=== PATIENT | female | born 1995 | race Hispanic/Latino ===

== ENCOUNTER 2019-03-27 01:03 | Inpatient (IN) | payer OTHER ==
[2019-03-27] VITALS (18 sets, daily range): BP systolic 103–132; BP diastolic 55–92
[~2019-03-27] VITALS: Ht 162.6 cm; Wt 78.2 kg
[2019-03-27] MEDS ORDERED: LR 1,000 ML IV SCH (01:39)
[2019-03-27] MEDS ORDERED: LACTATED RINGER'S 1000 ML IV ONE (01:45)
[2019-03-27 02:18] LABS: HEMATOCRIT 38.3 % (36.0-47.0); HEMOGLOBIN 13.4 g/dl (12.0-15.5); MEAN CORPUSCULAR HEMOGLOBIN 31.7 pg (27.0-33.0); MEAN CORPUSCULAR VOLUME 90.5 fl (80.0-96.0); PLATELET COUNT, AUTOMATED 154 10^3/uL (150-450); RED BLOOD COUNT 4.23 10^6/uL (4.00-5.40); WHITE BLOOD COUNT 11.8 10^3/uL (4.0-10.0)
[2019-03-27] MEDS ORDERED: FENTANYL 2MCG/ML ROPIVACAINE 0.2% IN 0.9% NACL 100ML IVBAG As Ordered ONE (02:30)
[2019-03-27] MEDS ORDERED: ePHEDrine SULFATE 25 MG/5 ML(5MG/ML) SYRINGE IV PRN (03:35)
[2019-03-27] MEDS ORDERED: NALOXONE INJ 0.4 MG/1 ML VIAL (J2310) IV PRN (03:35)
[2019-03-27] MEDS ORDERED: EPIDURAL/PCA KEYS XX PRN (03:35)
[2019-03-27] MEDS ORDERED: ONDANSETRON 4MG/2ML VIAL (J2405) IV PRN (03:35)
[2019-03-27] MEDS ORDERED: diphenhydrAMINE INJ 50MG/ML VIAL (J1200) IV PRN (03:35)
[2019-03-27] MEDS ORDERED: REFRIGERATOR IV KEYS XX PRN (03:35)
[2019-03-27] MEDS ORDERED: FENTANYL/ROPIVACAINE/NACL BAG 100 ML EPIDURAL SCH (03:35)
[2019-03-27] MEDS ORDERED: LACTATED RINGER'S 1000 ML IV PRN (03:35)
[2019-03-27] MEDS ORDERED: EPIDURAL COMMENT XX SCH (03:35)
[2019-03-27] MEDS ORDERED: OXYTOCIN 30 UNITS IN 0.9% NaCl 500ML IV BAG (J2590) As Ordered ONE (05:18)
[2019-03-27] MEDS ORDERED: OXYTOCIN DRIP 30 UNITS in APPROPRIATE DILUENT 1 EA IV SCH ×2 (05:30→07:48)
--- NOTE | 2019-03-27 07:45 | HPE ---
DATE OF ADMISSION: 03/27/2019 This lady is a 23-year-old 2, para 1, LMP 06/15/2018, EDC 03/26/2019 at 41 weeks of gestation, active labor 3 cm -2 station, posterior 50% effaced, category I strip. PAST HISTORY: In 2017 spontaneous vaginal delivery female 7 pounds 6 ounces. LABORATORY DATA: O positive, HIV negative, hepatitis negative, RPR negative, rubella immune, varicella immune. Pap normal. Urine negative. Gonorrhea and chlamydia negative. 1-hour glucose 95. Group B streptococcus (GBS) is negative. Blood pressure 119/72, respirations 18, pulse 85, temperature 98.6. EXAMINATION: This patient is in distress. Symphysis fundus height is 40, vertex OA as mentioned. Four quadrant bowel sounds are noted. The rest examination unremarkable. She is normocephalic, atraumatic. Neck full range of motion. Pupils equal and reactive to light. Distal pulses are symmetric. No evidence of deep venous thrombosis (DVT) , pulmonary embolism (PE), or superficial phlebitis. Chest is clear bilaterally bases. No wheezes or rhonchi. No CVA tenderness. She has no rashes, lesions or pruritus. No arthralgia or myalgia. No complaint of joint pain. No complaint cough, wheeze, shortness of breath or dyspnea on exertion. No frequency, urgency, no bleeding. Neuro complete. No incontinency or frequency. No endocrine issues or diabetic issues. MORTARMAN history is unremarkable. Past medical history and surgical noncontributory. Family history is negative. She does not smoke, drink, abuse drugs. She is and there is no domestic violence and she has good support systems. We talked about consent for vaginal delivery which the baby through the vagina, and possible assistance of forceps or vacuum devices if needed for maternal or indications, forces vacuum devices can assist with vaginal delivery when normal pushing efforts cannot achieve delivery on their own or when deliveries needed emergency for baby's well-being, medications used to required to induce or augment labor in order achieve vaginal delivery and episiotomy may be required to help baby deliver vaginally if this occurs it may require a repair of any lacerations or tears of vagina, vulva and may be required to help delivery of baby in some cases emergencies can occur which required emergency section and that there is no time for consenting, however, doctor will discuss the indications, understands this occurs only if there is urgent need to deliver baby because it is better to stop labor in order to get a better outcome. section is a delivery through a incision on the abdomen and the risks of those are hemorrhage, infection, perforation, , reoperation, remote possibility of blood transfusion or hysterectomy. Risks and vaginal delivery include but not limited to bleeding, infection, injury to vagina, pelvic structures, injury to baby. damage to the uterus, reaction to anesthesia uterine rupture, mention risk of hysterectomy for life-threatening bleeding situations. Medications used to induce or augment labor may increase her risk for infection, tachysystole, or uterine rupture, heart rate abnormalities which would require an emergency section, increased risk to the baby of scratches, hematomas of the head or intracranial bleed. The patient expressed verbalization is expressing interest right now an epidural actively cecile we anticipate post epidurals, AROM and anticipate delivery.
[2019-03-27] MEDS ORDERED: METHYLERGONOVINE MALEATE 0.2 MG TAB PO PRN (08:00)
[2019-03-27] MEDS ORDERED: ACETAMINOPHEN TAB 650MG DOSE (2X325MG) PO PRN (08:00)
[2019-03-27] MEDS ORDERED: OXYTOCIN INJ 10 UNITS/ML VIAL (J2590) IV ONE (08:00)
[2019-03-27] MEDS ORDERED: MEASLES,MUMPS,RUBELLA VACCINE INJ (MMR-II) (90707) SC SCH (08:00)
[2019-03-27] MEDS ORDERED: IBUPROFEN 600 MG TAB PO PRN (08:00)
[2019-03-27] MEDS ORDERED: MOM 30ML SUSPENSION UDC PO PRN (08:00)
[2019-03-27] MEDS ORDERED: ACETAMINOPHEN 500 MG TAB PO PRN (08:00)
[2019-03-27] MEDS ORDERED: DIBUCAINE 1% OINTMENT 30GM TOP PRN (08:00)
[2019-03-27] MEDS ORDERED: DOCUSATE SODIUM 100 MG CAP PO PRN (08:00)
[2019-03-27] MEDS ORDERED: medroxyPROGESTERone ACET IM SUSP 150 MG/ML VIAL (J1050) IM SCH ×2 (08:00→11:00)
[2019-03-27] MEDS ORDERED: IBUPROFEN 800 MG TAB PO PRN (08:00)
[2019-03-27] MEDS ORDERED: RHOGAM 300 MCG (1500 IU) INJ (J2790) IM SCH (08:00)
[2019-03-27 08:09] LABS: CORD GAS ABE V -2.4; CORD GAS HCO3 V 23.4 MEQ/L; CORD GAS O2 SAT V 70.4 %; CORD GAS PH V 7.344 UNITS; CORD GAS SBC V 21.7 MEQ/L; CORD GAS TCO2 V 24.8 MEQ/L
[2019-03-27 08:14] LABS: CORD GAS ABE A -1.3; CORD GAS HCO3 A 24.8 MEQ/L; CORD GAS O2 SAT A 52.9 %; CORD GAS PCO2 A 46.5 mmHg; CORD GAS PH A 7.345 UNITS; CORD GAS PO2 A 21.3 mmHg; CORD GAS SBC A 22.2 MEQ/L; CORD GAS TCO2 A 26.2 MEQ/L
--- NOTE | 2019-03-27 10:35 | DN ---
DATE: 03/27/2019 DELIVERY NOTE: This lady is a 2, now para 1, admitted with contractions at 41 weeks of gestation. She had an epidural in place, an artificial rupture of membranes (AROM) draining liquid. Augmented with Pitocin at 6 milliunits, had a spontaneous vaginal delivery, intact perineum, of a live female with terminal meconium. Cord times one loose. Weighing 3770 grams, 8 pounds 5 ounces, Apgars of 8 and 9 at one and five minutes respectively. Arterial venous gases are pending. The placenta delivered spontaneously thereafter, three-vessels, and the cord, membranes and tissues intact. Evaluation of the anterior, posterior and lateral cueva were intact. Uterus contracted well down under Pitocin, anatomically correct position. 2 below. The patient and baby tolerating procedure well.
[2019-03-27] MEDS: PRENATAL VITAMINS CHEWABLE TABLET PO SCH (11:48)
[2019-03-28 06:01] VITALS: BP 112/70
[2019-03-28 07:05] LABS: HEMATOCRIT 34.2 % (36.0-47.0); HEMOGLOBIN 11.2 g/dl (12.0-15.5); MEAN CORPUSCULAR HEMOGLOBIN 30.9 pg (27.0-33.0); MEAN CORPUSCULAR HGB CONC 32.7 g/dl (32.0-36.5); MEAN CORPUSCULAR VOLUME 94.5 fl (80.0-96.0); PLATELET COUNT, AUTOMATED 131 10^3/uL (150-450); RED BLOOD COUNT 3.62 10^6/uL (4.00-5.40); WHITE BLOOD COUNT 9.5 10^3/uL (4.0-10.0)
--- NOTE | 2019-03-28 07:33 | IPNPDOC ---
Text Note Date of Service The patient was seen on 03/28/19. NOTE PPD1 States feeling well, pain controlled with prescribed meds. Baby bonding and feeding well. No heavy VB. Lochia slowing. Ambulatory. Tolerating PO without issues. Voiding spont. No CP/LP/SOB. VSSAF NAD A&O LE no C/C/E Ut at U-2, firm a/p: Doing well. Cont routine care. D/C tomorrow. Sessions Natanael STEIN, I+O Natanael MELÉNDEZ I+O Laboratory Tests 03/28/19 06:44 Red Blood Count 3.62 L, Mean Corpuscular Volume 94.5, Mean Corpuscular Hemoglobin 30.9, Mean Corpuscular Hemoglobin Concent 32.7, Red Cell Distribution Width 14.8 H Vital Signs Date Time Temp Pulse Resp B/P (MAP) Pulse Ox O2 Delivery O2 Flow Rate FiO2 03/28/19 06:01 97.8 69 18 112/70 (84) I&O- Last 24 Hours up to 6 AM 03/28/19 05:59 Intake Total 1700 ml Output Total 1700 ml Balance 0 ml AUSTIN FUNK MD Mar 28, 2019 07:33
[2019-03-28] MEDS: PRENATAL VITAMINS CHEWABLE TABLET PO SCH (07:58)
[2019-03-28 18:04] VITALS: BP 117/71
[2019-03-29 06:00] VITALS: BP 125/81
[2019-03-29] MEDS ORDERED: PRENCHW PO (07:15)
[2019-03-29] MEDS ORDERED: IBUP80TA PO (07:15)
[2019-03-29] MEDS ORDERED: COLA100C5 PO (07:15)
[2019-03-29] MEDS ORDERED: ACET-683 PO (07:15)
[2019-03-29] MEDS ORDERED: DIBU10OI TOP (07:15)
[2019-03-29] MEDS: PRENATAL VITAMINS CHEWABLE TABLET PO SCH (08:04)
--- NOTE | 2019-03-29 15:01 | DSES ---
DATE OF ADMISSION: 03/27/2019 DATE OF DISCHARGE: 03/29/2019 This lady is a 23-year-old, 2, now para 2, admitted in spontaneous labor at 40 and 1 weeks of gestation with spontaneous vaginal delivery live female , 8 pounds 5 ounces (3770 grams) of 8 and 9 at one and five minutes respectfully. Arterial pH 7.34, base excess -1.3, venous pH 7.34, base excess -2.4. Her admitting hemoglobin was 13.4, hematocrit 38.3, and platelets 154. Discharge hemoglobin 11.2, hematocrit 34.2, and platelets are 131. Her vital signs on discharge, blood pressure 125/81, respirations 18, pulse 67, temperature 98.6. We discussed phlebitis, cystitis, mastitis, endometritis and cellulitis, diet, exercise, pain management, perineal, breast and wound care. On discharge, the patient was discharged with medications, had Depo-Provera as a method of contraception, has a 6 weeks checkup. The rest examination unremarkable. Normocephalic, atraumatic. Neck full range of motion. Pupils equal and reactive to light. Distal pulses symmetric. No evidence of deep venous thrombosis (DVT), pulmonary embolism (PE), or superficial phlebitis. Chest is clear bilaterally bases. No wheezes or rhonchi. There is the no costovertebral angle (CVA) tenderness. Abdomen soft. Uterus two below. Lochia is moderate. Four quadrant bowel sounds are noted. Perineum is intact. She has no rashes, lesions, or pruritus. No arthralgia or myalgia. No complaint of joint pain. No of cough, wheeze, shortness breath, or dyspnea on exertion. She is neuro complete. She is not bleeding. No nausea, vomiting, diarrhea, or constipation. In summary, we have a term gestation delivered a live female infant discharged improved. edited: 03/31/2019 [id number] [email or web address] FARR
== END 2019-03-29 13:00 | disposition home or self-care (01) | DRG 807 ==
LOC: M LDO 01:03 → M LDI 01:36 → M OBS 10:06
PROVIDERS: ADMIT Obstetrics & Gynecology; ATTEND Obstetrics & Gynecology
PROC: 10E0XZZ Delivery of Products of Conception, External Approach (ICD-10-PCS; principal; 2019-03-27)
PROC: 10907ZC Drainage of Amniotic Fluid, Therapeutic from Products of Conception, Via Natural or Artificial Opening (ICD-10-PCS; 2019-03-27)
DX: O48.0 Post-term pregnancy (principal); Z37.0 Single live birth; Z3A.41 41 weeks gestation of pregnancy; O69.82X0 Labor and delivery complicated by other cord entanglement, without compression, not applicable or unspecified; O77.0 Labor and delivery complicated by meconium in amniotic fluid

== ENCOUNTER 2019-12-12 20:16 | Emergency (ER) | payer OTHER ==
[~2019-12-12] VITALS: Ht 162.6 cm; Wt 68.2 kg
[~2019-12-12 20:16] MED LIST: ACET-683 PO; COLA100C5 PO; DIBU10OI TOP; IBUP80TA PO; PRENCHW PO
[2019-12-12 21:15] LABS: HEMATOCRIT 40.7 % (36.0-47.0); HEMOGLOBIN 14.1 g/dl (12.0-15.5); MEAN CORPUSCULAR HEMOGLOBIN 30.8 pg (27.0-33.0); MEAN CORPUSCULAR HGB CONC 34.6 g/dl (32.0-36.5); MEAN CORPUSCULAR VOLUME 88.9 fl (80.0-96.0); PLATELET COUNT, AUTOMATED 214 10^3/uL (150-450); RED BLOOD COUNT 4.58 10^6/uL (4.00-5.40); WHITE BLOOD COUNT 5.7 10^3/uL (4.0-10.0)
[2019-12-12 21:55] LABS: HCG, SERUM QUALITATIVE NEGATIVE (NEGATIVE)
[2019-12-12 21:59] LABS: ALBUMIN 3.9 GM/DL (3.2-5.2); ALT/SGPT 77 U/L (12-78); BILIRUBIN,DIRECT < 0.1 MG/DL (0.0-0.2); BILIRUBIN,TOTAL 0.3 MG/DL (0.2-1.0); BLOOD UREA NITROGEN 8 MG/DL (7-18); CALCIUM LEVEL 8.5 MG/DL (8.5-10.1); CARBON DIOXIDE LEVEL 21 MEQ/L (21-32); CHLORIDE LEVEL 108 MEQ/L (98-107); CREATININE FOR GFR 0.68 MG/DL (0.55-1.30); ETHYL ALCOHOL (ETHANOL) 0.149 % (0.000-0.010); GLOMERULAR FILTRATION RATE > 60.0 (>60); GLUCOSE, FASTING 90 MG/DL (70-100); POTASSIUM SERUM 3.9 MEQ/L (3.5-5.1); SALICYLATE LEVEL < 1.7 MG/DL (5.0-30.0); SODIUM LEVEL 138 MEQ/L (136-145); THYROID STIMULATING HORMONE 0.417 uIU/ML (0.358-3.740); TOTAL PROTEIN 7.4 GM/DL (6.4-8.2)
[2019-12-12 22:00] LABS: ACETAMINOPHEN LEVEL < 2.0 UG/ML (10.0-30.0)
[2019-12-12] MEDS ORDERED: NORC1TAB7 PO (22:06)
[2019-12-12] MEDS ORDERED: AMOX125C PO (22:06)
[2019-12-12] MEDS ORDERED: DEPO150I12 IM (22:06)
[2019-12-12 23:27] LABS: AMPHETAMINES LEVEL URINE NEGATIVE (NEGATIVE); BARBITURATES URINE NEGATIVE (NEGATIVE); BENZODIAZEPINES URINE NEGATIVE (NEGATIVE); CANNABINOIDS URINE NEGATIVE (NEGATIVE); COCAINE METABOLITE URINE NEGATIVE (NEGATIVE); METHADONE URINE NEGATIVE (NEGATIVE); OPIATES URINE POSITIVE (NEGATIVE); PHENCYCLIDINE URINE NEGATIVE (NEGATIVE)
[2019-12-13 02:53] VITALS: BP 131/82
== END 2019-12-13 02:55 | disposition home or self-care (01) ==
LOC: M ED 20:16
DX: F43.0 Acute stress reaction (principal); F32.9 Major depressive disorder, single episode, unspecified; X78.9XXA Intentional self-harm by unspecified sharp object, initial encounter; Z62.810 Personal history of physical and sexual abuse in childhood
CPT/HCPCS: 80048; 80076; 80307; 84443; 84703; 85027; 99284; G0480